=== PATIENT | male | born 1990 | race Caucasian/White ===

== ENCOUNTER 2021-08-14 12:55 | Emergency (ER) | payer OTHER, SELFPAY ==
[2021-08-14] VITALS (18 sets, daily range): BP systolic 106–128; BP diastolic 65–83; PULSE 52–83; RESP 10–23; TEMP 36.7–37; O2SAT 96–100
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
--- NOTE | 2021-08-14 13:30 | RT.EKG_ITS ---
APPROVED REPORT Exam: Resting ECG Reason for Exam: syncope Patient Location: E HR:59 bpm ECG Measurements Heart Rate 59 AXIS CA 291 P 37 QRSd 100 QRS 68 QT 448 T 42 QTc 444 Conclusion Sinus bradycardia...rate< 60 Prolonged CA interval...CA >210, V-rate 50- 90 ST elev, probable normal early repol pattern...ST elevation, age<55 sinus rhythm at 79, first-degree block, no WPW, QTC 444, no HOCM, no Brugada, no STEMI, nondiagnostic EKG I have reviewed and interpreted ECG and agree with software generated interpretation.
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
[2021-08-14 13:48] LABS: Abs Immature Grans 0.03 10^3/uL (0.0-0.06); Absolute Lymphocyte Count 2.83 10^3/uL (1.2-3.4); Absolute Monocyte Count 0.45 10^3/uL (0.1-0.8); Absolute Neutrophil Count 8.04 10^3/uL (1.2-6.7); Basophils % 0.3; Eosinophils % 0.9; HGB 13.9 g/dL (13.5-17.5); Immature Grans % 0.3; Lymphocytes % 24.6; MCHC 33.9 % (32.0-36.0); MCV 88 fL (80-95); MPV 10.5 fL (8.0-11.0); Monocytes % 3.9; Platelet Count 269 10^3/uL (130-400); RBC 4.64 10^6/uL (4.36-5.78); RDW 11.9 % (11.8-14.1); WBC 11.49 10^3/uL (4.4-10.8)
[2021-08-14 13:49] LABS: Absolute Basophil Count 0.03 10^3/uL (0.0-0.2)
[2021-08-14] MEDS: fentaNYL 100 MCG/2 ML VIAL 75 MCG IVP (13:49)
[2021-08-14] MEDS: Normal Saline 1,000 ML 1000 ML IV (13:50)
[2021-08-14 14:06] LABS: ALT 27 U/L (16-63); AST 25 U/L (15-37); Albumin 5.2 g/dL (3.4-5.0); Alkaline Phosphatase 102 U/L (46-116); BUN 22 mg/dL (7-18); Bilirubin, Total 0.9 mg/dL (0.2-1.0); CREATININE 0.9 mg/dL (0.70-1.30); Calcium 9.5 mg/dL (8.5-10.1); Chloride 103 mmol/L (98-107); Glucose 131 mg/dL (74-106); Potassium 3.6 mmol/L (3.5-5.1); Sodium 141 mmol/L (136-145); Total Protein 8.1 g/dL (6.4-8.2)
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
[2021-08-14] MEDS: Propofol 200 MG/20 ML VIAL (16:55)
--- NOTE | 2021-08-14 18:13 | DI.VRAD_ITS ---
PROCEDURE INFORMATION: Exam: XR Left Shoulder Exam date and time: 08/14/2021 17:54 Age: 31 years old Clinical indication: Other: Left shoulder post reduction images TECHNIQUE: Imaging protocol: XR Left shoulder. Views: 2 or more views. COMPARISON: CR XR SHOULDER LT COMPLETE 2+V 08/14/2021 14:27 FINDINGS: Bones/joints: The left glenohumeral dislocation has been reduced. Anatomic alignment. There are no definite fracture fragments identified. Soft tissues: Normal. IMPRESSION: The left glenohumeral dislocation has been reduced. Anatomic alignment. Dictated and Authenticated by: Marion Camilo MD. Ordering:RITA Saldana MD
== END 2021-08-14 18:59 | disposition home or self-care (01) ==
PROVIDERS: Physician Assistant; Emergency Provider Emergency Medicine
DX: S43.085A Other dislocation of left shoulder joint, initial encounter (principal); S00.83XA Contusion of other part of head, initial encounter; V19.9XXA Pedal cyclist (driver) (passenger) injured in unspecified traffic accident, initial encounter; R55 Syncope and collapse
CPT/HCPCS: 23650; 36416; 73030; 80053; 82962; 93005; 96361; 96374; 99285; 70450; 71046; 72125; 85025; 93010; 99284; J2704; J3010